=== PATIENT | female | born 1950 | race Caucasian/White ===

== ENCOUNTER 2021-04-06 13:30 | Outpatient (CLI) | payer MEDICAID, MEDICARE | END 2021-04-06 13:31 | disposition critical access hospital (66) | LOC: EMS 13:30 | DX: S99.912A Unspecified injury of left ankle, initial encounter (principal); S99.911A Unspecified injury of right ankle, initial encounter; S89.92XA Unspecified injury of left lower leg, initial encounter; S89.91XA Unspecified injury of right lower leg, initial encounter; W18.39XA Other fall on same level, initial encounter; Y93.01 Activity, walking, marching and hiking; Y92.007 Garden or yard of unspecified non-institutional (private) residence as the place of occurrence of the external cause | CPT/HCPCS: A0425; A0427 ==

== ENCOUNTER 2021-04-06 14:13 | Emergency (ER) | payer MEDICAID, MEDICARE ==
--- NOTE | 2021-04-06 14:43 | ED Physician Documentation ---
History of Present Illness - Stated complaint Stated Complaint: LEG INJURY - Chief complaint Chief Complaint: Trauma Ext - History obtained from History obtained from: Patient, EMS - History of Present Illness Timing: Today Pain level max: 7 Pain level now: 2 - Additonal information Additional information: 70-year-old female was walking today when she tripped, fell and landed on the bilateral knees. States she has pain in both her ankles and both her knees. No head injury. No neck or back pain. No loss of consciousness. No numbness or tingling. 200 mcg of fentanyl given IV by EMS prior to arrival. Worse with movement and better with rest. Review of Systems Constitutional: denies: Fever, Chills Nose: denies: Rhinorrhea / runny nose, Congestion GI: denies: Vomiting, Constipation, Diarrhea Skin: denies: Rash Musculoskeletal: denies: Neck pain, Back pain Neurologic: denies: Headache PD PAST MEDICAL HISTORY - Past Medical History Past Medical History: Yes Cardiovascular: None Respiratory: None Endocrine/Autoimmune: None GI: None : None HEENT: None Psych: None Musculoskeletal: Osteoarthritis Derm: None - Present Medications Home Medications: Ambulatory Orders Medication Instructions Recorded Confirmed Multivitamin [Multi-Vitamin Daily] 1 each PO DAILY 01/30/14 04/06/21 Oxycodone HCl/Acetaminophen 1 - 2 each PO Q6H PRN #20 tablet 04/06/21 [Percocet 5-325 mg Tablet] - Allergies Allergies/Adverse Reactions: Allergies Allergy/AdvReac Type Severity Reaction Status Date / Time No Known Drug Allergies Allergy Verified 04/06/21 14:25 PD ED PE NORMAL - Vitals Vital signs reviewed: Yes - General General: Alert and oriented X 3, No acute distress - HEENT HEENT: Moist mucous membranes - Neck Neck: Supple, no meningeal sign, No bony TTP - Cardiac Cardiac: RRR - Respiratory Respiratory: No respiratory distress, Clear bilaterally - Abdomen Abdomen: Soft, Non tender, Non distended - Back Back: No spinal TTP - Derm Derm: Warm and dry - Extremities Extremities: Other (mild swelling and TTP over the B knees and B ankles. No deformity. NVI. also TTP over the L foot, base of 5th MT. ) - Neuro Neuro: Alert and oriented X 3 Results - Vitals Vitals: Vital Signs - 24 hr 05/15/21 05/15/21 14:21 15:49 Temperature 36.7 C Heart Rate 85 87 Respiratory 18 18 Rate Blood Pressure 189/93 H 169/85 H O2 Saturation 96 100 Oxygen O2 Source Room air - Rads (name of study) L foot xray Radiology: Prelim report reviewed, EMP read contemporaneously, See rad report (Mildly displaced fracture of the base of the fifth metatarsal approximately 0.9 cm from the base. ) B knee xray Radiology: Prelim report reviewed, EMP read contemporaneously, See rad report B ankle xray Radiology: Prelim report reviewed, EMP read contemporaneously, See rad report PD MEDICAL DECISION MAKING - ED course Complexity details: reviewed results, re-evaluated patient, considered differential, d/w patient ED course: 70-year-old female status post trip and fall today. Has a fracture at the base of the fifth metatarsal on x-ray of the left foot. Initially was placed in a short leg posterior splint and attempted to use a walker as x-rays of the bilateral knees and right ankle were negative. She was unable to bear weight on the right leg and pointed to her upper leg as the source of pain. She also s tated that her ankle felt unstable, therefore we placed her in a gel splint and she was still unable to walk. At this point I decided to CT the right lower extremity which shows a 2 mm displaced lateral tibial plateau fracture that was not visible on x-ray. Discussed the case with orthopedics, Dr. Foley, he recommends a walking boot on the left foot and a knee immobilizer on the right lower extremity. Patient will be nonweightbearing on the right lower extremity and use the walker and walking boot to help her get around. She was able to ambulate in the emergency department with the walker in the walking boot. She will follow up with orthopedics for further care. Patient counseled regarding signs and symptoms for which I believe and urgent re-evaluation would be necessary. Patient with good understanding of and agreement to plan and is comfortable going home at this time This document was made in part using voice recognition software. While efforts are made to proofread this document, sound alike and grammatical errors may occur. B ankle xray IMPRESSION: Nondisplaced fracture of the base of the left fifth metatarsal. Consider dedicated foot radiographs if further evaluation is necessary. Mild to moderate degenerative changes of the foot and ankle. Calcaneal spurring at the precontrast on Achilles insertions. Soft tissue swelling of the ankles. B knee xray: IMPRESSION: Tricompartmental osteoarthritis which is worse within the patellofemoral compartments. No acute osseous abnormality. Chondrocalcinosis. Departure - Departure Disposition: 01 Home, Self Care Clinical Impression: Ankle sprain Qualifiers: Encounter type: initial encounter Involved ligament of ankle: unspecified ligament Laterality: unspecified laterality Qualified Code(s): S93.409A - Sprain of unspecified ligament of unspecified ankle, initial encounter Fracture of 5th metatarsal Qualifiers: Encounter type: initial encounter Fracture type: closed Fracture alignment: displaced Laterality: left Qualified Code(s): S92.352A - Displaced fracture of fifth metatarsal bone, left foot, initial encounter for closed fracture Tibial plateau fracture, right Qualifiers: Encounter type: initial encounter Fracture type: closed Qualified Code(s): S82.141A - Displaced bicondylar fracture of right tibia, initial encounter for closed fracture Condition: Good Instructions: ED Fx Foot, ED Fx Lower Ext, ED Sprain Ankle Follow-Up: Ariana Maynard ARNP [Primary Care Provider] - [facility] [Provider Group] - Within 1 week Prescriptions: Oxycodone HCl/Acetaminophen [Percocet 5-325 mg Tablet] 1 - 2 each PO Q6H PRN #20 tablet PRN Reason: pain Comments: Follow-up with orthopedic surgery for repeat evaluation of your knees once the swelling has decreased and for follow-up for the fracture. These fractures occasionally will need surgery, but they may heal with immobilization or a walking boot. Return if you worsen. You may bear weight on the left foot. Do not bear weight on the right leg. Use the walker and stay in the knee immobilizer. Do not drink alcohol or drive while on narcotic pain medicine. Note that many narcotic pain relievers also contain tylenol/acetaminophen. Please ensure that your total dose of acetaminophen from all sources does not exceed 3 grams (3000mg) per day. You may constipated on this medication, take a stool softener such as "Colace" twice a day while you are on it. Also recommend a dhsk-dyd-zfwutew laxative such as senna or MiraLAX any day that you do not have a bowel movement. If you received narcotic pain medication in the emergency department, do not drive or operate machinery for the next 24 hours. IMPRESSION: Mildly displaced fracture of the base of the fifth metatarsal approximately 0.9 cm from the base. IMPRESSION: Findings consistent with an acute lateral tibial plateau fracture. There is fracture line with 2 mm of depression. Subtle undulation of the anterior aspect of the lateral tibial plateau with adjacent chondral calcinosis may represent sequela of remote tibial plateau fracture. Tricompartment osteoarthritis worse within the patellofemoral compartment. There is lateral deviation of the patella for which correlation with patellar tracking abnormality is recommended. Small joint effusion. Discharge Date/Time: 04/06/21 19:38
--- NOTE | 2021-04-06 15:19 | XRAY Report ---
PROCEDURE: Knee 4 View BILAT INDICATIONS: fall, pain TECHNIQUE: 8 views of the left knee(s) were acquired. COMPARISON: None. FINDINGS: Bones: There is no acute fracture or dislocation. There is complete joint space loss of the lateral p atellofemoral compartments with osseous remodeling. There is tricompartment osteophytosis. There is a t least mild joint space loss of the medial compartments bilaterally. There is subtle lateral transla tion of the tibia of the left knee. There is chondrocalcinosis. Soft tissues: No joint effusion. Corticated calcification is noted within the anterior soft tissues of the left knee, likely heterotopic ossification from remote trauma. IMPRESSION: Tricompartmental osteoarthritis which is worse within the patellofemoral compartments. N o acute osseous abnormality. Chondrocalcinosis. Reviewed by: Robert Bermeo DO on 04/06/2021 2:18 PM SOFIA Approved by: Robert Bermeo DO on 04/06/2021 2:18 PM SOFIA Station ID: [id number]
--- NOTE | 2021-04-06 15:24 | XRAY Report ---
PROCEDURE: Ankle 3 View BILAT INDICATIONS: fall, pain TECHNIQUE: 3 views of both ankles were acquired. COMPARISON: None FINDINGS: Bones: There is a nondisplaced fracture at the base of the left fifth metatarsal. Postsurgical changes of th e left first metatarsal incompletely evaluated. No additional fractures are noted. Ankle mortises are intact. Well-corticated calcific densities noted adjacent to the medial and lateral malleoli bilater ally are likely sequela of remote trauma. Mild to moderate degenerative changes of the ankle and midf oot. Soft tissues: No significant joint effusion. Mild soft tissue swelling throughout the ankles. This is most prominent along the lateral malleolus, left greater than right. Bilateral Achilles insertional enthesophytes as well as small left greater than right plantar fascial insertion enthesophytes. IMPRESSION: Nondisplaced fracture of the base of the left fifth metatarsal. Consider dedicated foot radiographs i f further evaluation is necessary. Mild to moderate degenerative changes of the foot and ankle. Calcaneal spurring at the precontrast on Achilles insertions. Soft tissue swelling of the ankles. Reviewed by: Robert Bermeo DO on 04/06/2021 2:23 PM SOFIA Approved by: Robert Bermeo DO on 04/06/2021 2:23 PM SOFIA Station ID: [id number]
[2021-04-06] MEDS ORDERED: KETOROLAC 30 MG/ML VIAL IVP STA (15:28)
[2021-04-06 15:50] VITALS: BP 169/85
[2021-04-06] MEDS ORDERED: oxyCODONE 5 MG TABLET PO STA ×2 (16:01→18:52)
--- NOTE | 2021-04-06 16:01 | XRAY Report ---
PROCEDURE: Foot 3 View LT INDICATIONS: 5th MT fracture TECHNIQUE: 3 views of the foot were acquired. COMPARISON: Same day ankle radiographs FINDINGS: Bones: There is a minimally displaced fracture at the base of the fifth metatarsal approximately 0.9 cm from the base. No additional fractures. No dislocation. Postsurgical changes of the first metatars al and proximal phalanx likely representing sequela of prior hallux valgus correction surgery. There are degenerative changes throughout the foot most prominent at the calcaneocuboid articulation and th e first metatarsophalangeal joint. Soft tissues: No tibiotalar joint effusion. Plantar calcaneal and Achilles insertion enthesophytes. IMPRESSION: Mildly displaced fracture of the base of the fifth metatarsal approximately 0.9 cm from the base. Reviewed by: Robert Bermeo DO on 04/06/2021 3:00 PM SOFIA Approved by: Robert Bermeo DO on 04/06/2021 3:00 PM SOFIA Station ID: [id number]
--- NOTE | 2021-04-06 18:01 | CT Report ---
PROCEDURE: LOWER EXTREMITY WO - RT INDICATIONS: R knee/tib/fib unable to walk TECHNIQUE: Noncontrast 3 mm axial sections acquired of the knee, with coronal and sagittal reformats. COMPARISON: None. FINDINGS: Image quality: Excellent. Bones: There is a linear fracture along the lateral margins of the lateral tibial plateau. This is a ssociated with minimal depression of approximately 2 mm. There is subtle undulation of the anterior a spect of the lateral tibial plateau with adjacent chondrocalcinosis, which may represent sequela of r emote tibial plateau fracture. There is tricompartmental osteophytosis. There is subchondral sclerosi s and subchondral cystic changes. There is lateral deviation of the patella. The cystic changes are w orse within the lateral articulating surface of the patellofemoral compartment. Soft tissues: There is a small joint effusion with intra-articular calcifications. IMPRESSION: Findings consistent with an acute lateral tibial plateau fracture. There is fracture line with 2 mm o f depression. Subtle undulation of the anterior aspect of the lateral tibial plateau with adjacent chondral calcino sis may represent sequela of remote tibial plateau fracture. Tricompartment osteoarthritis worse within the patellofemoral compartment. There is lateral deviation of the patella for which correlation with patellar tracking abnormality is recommended. Small joint effusion. Reviewed by: Robert Bermeo DO on 04/06/2021 4:59 PM SOFIA Approved by: Robert Bermeo DO on 04/06/2021 4:59 PM SOFIA Station ID: [id number]
[2021-04-06] MEDS ORDERED: oxyCODONE/ACET 5/325 Prepack 4 PO STA (18:52)
== END 2021-04-06 19:38 | disposition home or self-care (01) ==
LOC: EDUNIT# → ED 14:13 → SUPCPDRO 14:13 → ED 19:38
DX: S92.352A Displaced fracture of fifth metatarsal bone, left foot, initial encounter for closed fracture (principal); S82.141A Displaced bicondylar fracture of right tibia, initial encounter for closed fracture; S93.409A Sprain of unspecified ligament of unspecified ankle, initial encounter; W01.0XXA Fall on same level from slipping, tripping and stumbling without subsequent striking against object, initial encounter; Y93.01 Activity, walking, marching and hiking; Y92.007 Garden or yard of unspecified non-institutional (private) residence as the place of occurrence of the external cause; M17.0 Bilateral primary osteoarthritis of knee
CPT/HCPCS: 29515; 73564; 73610; 73630; 73700; 96374; 99284; A9270

== ENCOUNTER 2021-05-21 08:00 | Outpatient (CLI) | payer MEDICARE, MEDICAID ==
--- NOTE | 2021-05-21 17:23 | XRAY Report ---
PROCEDURE: Knee 4 View BILAT INDICATIONS: BILATERAL PRIMARY OSTEOARTHRITIS OF KNEES TECHNIQUE: 3 views of the knee(s) were acquired. COMPARISON: None. FINDINGS: Bones: No fractures or dislocations. No suspicious bony lesions. There is moderate to severe bilateral medial compartment narrowing with periarticular osteophytes. Th ere is mild to moderate right lateral compartment narrowing. Chondrocalcinosis is present bilaterally . Prominent left lateral patellar subluxation is present. There is bilateral mild to moderate patello femoral compartment narrowing. No gross erosions. Soft tissues: No joint effusion. No suspicious soft tissue calcifications. IMPRESSION: Stable appearance of tricompartmental right and bicompartmental arthritic changes as abo ve. Reviewed by: Jeanie Alford MD on 05/21/2021 5:21 PM PDT Approved by: Jeanie Alford MD on 05/21/2021 5:21 PM PDT Station ID: [id number]
--- NOTE | 2021-05-21 17:30 | XRAY Report ---
PROCEDURE: Ankle 3 View BILAT INDICATIONS: SPRAIN OF CALCANEOFIBULAR LIGAMENT OF L ANKLE TECHNIQUE: 3 views of the ankle were acquired. COMPARISON: Left foot x-ray 921, 05/13/2014, 04/06/2021, bilateral ankle 04/06/2021 FINDINGS: Bones: There is a healing fracture at the base of the fifth left metatarsal. Ankle mortise is normall y aligned. No suspicious bony lesions. Arthritic change at the tibiotalar joint space is present bilaterally. Bilateral calcaneal spurs are present. There are corticated calcifications adjacent to the medial and lateral malleolus on the left most consistent with degenerative change versus old trauma. Bilateral Achilles insertional enthesoph ytes are present. Postsurgical screw is noted overlying the first metatarsal. Soft tissues: No tibiotalar joint effusion. Achilles tendon appears normal. IMPRESSION: 1. Degenerative changes bilaterally, relatively stable. 2. Healing although incomplete fifth metatarsal base fracture. Reviewed by: Jeanie Alford MD on 05/21/2021 5:29 PM PDT Approved by: Jeanie Alford MD on 05/21/2021 5:29 PM PDT Station ID: [id number]
--- NOTE | 2021-05-21 17:31 | XRAY Report ---
PROCEDURE: Foot 3 View LT INDICATIONS: NONDISPLACED FX OF L 5TH METACARPAL TECHNIQUE: 3 views of the foot were acquired. COMPARISON: X-ray ankle bilateral 02/04/2021, left foot 02/04/2021 FINDINGS: Bones: There is a healing fifth metatarsal base fracture. Fracture lucency remains visible. Cerclage wires noted overlying the proximal first phalanx. Or 3 screws noted traversing the first mid and prox imal metatarsal. There is good anatomic alignment.. No suspicious bony lesions. Soft tissues: No tibiotalar joint effusion. Achilles tendon appears normal. IMPRESSION: 1. Healing fracture of fifth metatarsal base. 2. First metatarsal postsurgical change. Reviewed by: Jeanie Alford MD on 05/21/2021 5:30 PM PDT Approved by: Jeanie Alford MD on 05/21/2021 5:30 PM PDT Station ID: [id number]
== END 2021-05-21 23:59 | disposition home or self-care (01) ==
LOC: DI.N 08:00
PROVIDERS: ATTEND Orthopaedic Surgery
DX: M17.0 Bilateral primary osteoarthritis of knee (principal); M19.072 Primary osteoarthritis, left ankle and foot; M19.071 Primary osteoarthritis, right ankle and foot; S92.352D Displaced fracture of fifth metatarsal bone, left foot, subsequent encounter for fracture with routine healing

== ENCOUNTER 2021-07-04 08:27 | Outpatient (CLI) | payer MEDICARE, MEDICAID ==
[2021-07-04 16:26] LABS: BASOPHILS % (AUTO) 0.9 %; EOSINOPHILS # (AUTO) 0.1 10^3/uL (0.0-0.7); EOSINOPHILS % (AUTO) 2.5 %; HCT - HEMATOCRIT 41.7 % (37.0-47.0); HGB - HEMOGLOBIN 12.8 g/dL (12.0-16.0); LYMPHOCYTES # (AUTO) 1.3 10^3/uL (1.5-3.5); MEAN CORPUSCULAR HEMOGLOBIN 30.5 pg (27.0-31.0); MEAN CORPUSCULAR HGB CONC 30.7 g/dL (32.0-36.0); MEAN CORPUSCULAR VOLUME 99.3 fL (81.0-99.0); MEAN PLATELET VOLUME 9.8 fL (7.9-10.8); MONOCYTES # (AUTO) 0.5 10^3/uL (0.0-1.0); MONOCYTES % (AUTO) 11.7 %; NEUTROPHILS # (AUTO) 2.4 10^3/uL (1.5-6.6); NEUTROPHILS % (AUTO) 54.7 %; PLT - PLATELET COUNT 328 10^3/uL (130-450); RED CELL DISTRIBUTION WIDTH 12.9 % (12.0-15.0); WHITE BLOOD COUNT 4.4 x10^3/uL (4.8-10.8)
[2021-07-04 16:52] LABS: ALBUMIN/GLOBULIN RATIO 1.4 (1.0-2.2); ALKALINE PHOSPHATASE 85 IU/L (42-121); ALT ALANINE AMINOTRANSFERASE 23 IU/L (10-60); AST ASPARTATE AMINOTRANSFERASE 21 IU/L (10-42); BUN - BLOOD UREA NITROGEN 10 mg/dL (6-20); CARBON DIOXIDE - CO2 25 mmol/L (21-32); CHLORIDE 105 mmol/L (101-111); CHOL/HDL RATIO 3.3 (<4.4); CHOLESTEROL 253 mg/dL; CREATININE 0.5 mg/dL (0.4-1.0); GFR - MDRD 122 (>89); GLUCOSE 103 mg/dL (70-100); HDL CHOLESTEROL 77 mg/dL; LDL CHOLESTEROL,CALCULATED 154 mg/dL; POTASSIUM 3.8 mmol/L (3.5-5.0); SODIUM 138 mmol/L (135-145); TOTAL PROTEIN 6.8 g/dL (6.7-8.2); TRIGLYCERIDES 108 mg/dL; VLDL CHOLESTEROL 22 mg/dL
== END 2021-07-04 08:28 | disposition home or self-care (01) ==
LOC: LAB.S 08:27
PROVIDERS: ATTEND Internal Medicine
DX: Z00.00 Encounter for general adult medical examination without abnormal findings (principal); R03.0 Elevated blood-pressure reading, without diagnosis of hypertension
CPT/HCPCS: 36415; 80053; 80061; 83721; 85025

== ENCOUNTER 2022-03-12 15:13 | Emergency (ER) | payer MEDICARE, MEDICAID ==
[2022-03-12] MEDS ORDERED: SODIUM CHLORIDE 0.9% 1,000 ML IV STA (15:47)
[2022-03-12] MEDS ORDERED: ONDANSETRON 4 MG/2 ML VIAL IVP STA (15:47)
[2022-03-12] MEDS ORDERED: HYDROmorphone 1 MG/ML CARPUJECT IVP STA ×2 (15:47→17:06)
--- NOTE | 2022-03-12 15:47 | ED Physician Documentation ---
History of Present Illness - Stated complaint Stated Complaint: NAUSEA,RT SIDE PX,SHAKING - Chief complaint Chief Complaint: Abd Pain - Additonal information Additional information: 71-year-old female presents emergency department for evaluation of acute right flank pain right lower quadrant abdominal pain. 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 However she had been unable to get the pain to go away despite lack of movement or rest. She has a remote history of a hernia repair on the right side about 6 years ago. She endorses some nausea but no vomiting. No rosalino hematuria though over the last week she has intermittently had darker than normal urine. No dysuria frequency or urgency. Review of Systems Constitutional: denies: Fever, Chills Nose: reports: Reviewed and negative Throat: reports: Reviewed and negative Respiratory: reports: Reviewed and negative GI: reports: Abdominal Pain, Nausea : denies: Dysuria (Dark urine), Frequency, Hesitancy, Unable to Void, Incontinent Skin: reports: Reviewed and negative Musculoskeletal: reports: Reviewed and negative Neurologic: reports: Reviewed and negative Psychiatric: reports: Reviewed and negative PD PAST MEDICAL HISTORY - Past Medical History Cardiovascular: None Respiratory: None Endocrine/Autoimmune: None GI: None : None HEENT: None Psych: None Musculoskeletal: Osteoarthritis Derm: None - Present Medications Home Medications: Ambulatory Orders Medication Instructions Recorded Confirmed Multivitamin [Multi-Vitamin Daily] 1 each PO DAILY 01/30/14 03/12/22 HYDROcod/ACETAM 5/325 [Thurmond 5/325] 1 tablet PO BID PRN #10 tablet 03/12/22 Losartan Potassium 25 mg PO DAILY 03/12/22 03/12/22 Tamsulosin HCl [Flomax] 0.4 mg PO DAILY #14 cap 03/12/22 - Allergies Allergies/Adverse Reactions: Allergies Allergy/AdvReac Type Severity Reaction Status Date / Time No Known Drug Allergies Allergy Verified 03/12/22 15:20 - Social History Does the pt smoke?: No Smoking Status: Never smoker PD ED PE NORMAL - General General: Alert and oriented X 3, No acute distress, Well developed/nourished - HEENT HEENT: Atraumatic - Neck Neck: Supple, no meningeal sign, No adenopathy - Cardiac Cardiac: RRR, No murmur - Respiratory Respiratory: No respiratory distress, Clear bilaterally - Abdomen Abdomen: Normal bowel sounds, Soft. No: Non tender (Mild tenderness to the right flank without guarding or rebound. No CVA tenderness. Abdominal exam however is limited by body habitus) - Back Back: No CVA TTP - Derm Derm: Normal color, Warm and dry, No rash - Extremities Extremities: No deformity - Neuro Neuro: Alert and oriented X 3 Eye Opening: Spontaneous Motor: Obeys Commands Verbal: Oriented GCS Score: 15 - Psych Psych: Normal mood Results - Vitals Vitals: Vital Signs - 24 hr 03/12/22 03/12/22 03/12/22 15:16 15:39 15:56 Temperature 36.6 C Heart Rate 95 100 96 Respiratory 16 22 18 Rate Blood Pressure 212/97 H 159/119 H 158/117 H O2 Saturation 98 99 100 03/12/22 03/12/22 16:59 17:15 Temperature Heart Rate 90 97 Respiratory 20 20 Rate Blood Pressure 192/89 H 179/107 H O2 Saturation 99 96 Oxygen O2 Source Room air - Labs Labs: Laboratory Tests 03/12/22 03/12/22 03/12/22 15:27 15:30 15:30 WBC 8.0 RBC 4.45 Hgb 14.1 Hct 41.9 MCV 94.2 MCH 31.7 H MCHC 33.7 RDW 12.4 Plt Count 272 MPV 9.6 Neut # (Auto) 6.0 Lymph # (Auto) 1.2 L [place] # (Auto) 0.7 Eos # (Auto) 0.1 Baso # (Auto) 0.1 Absolute Nucleated RBC 0.00 Nucleated RBC % 0.0 Sodium 139 Potassium 3.8 Chloride 103 Carbon Dioxide 24 Anion Gap 12.0 BUN 15 Creatinine 0.7 Estimated GFR (MDRD) 83 L Glucose 123 H Lactic Acid Calcium 10.7 H Total Bilirubin 0.8 AST 26 ALT 33 Alkaline Phosphatase 100 Total Protein 7.5 Albumin 4.2 Globulin 3.3 Albumin/Globulin Ratio 1.3 Lipase 22 Urine Color YELLOW Urine Clarity CLOUDY Urine pH 5.5 Ur Specific [place] >=1.030 H Urine Protein 30 H Urine Glucose (UA) NEGATIVE Urine Ketones 40 H Urine Occult Blood LARGE H Urine Nitrite NEGATIVE Urine Bilirubin NEGATIVE Urine Urobilinogen 0.2 (NORMAL) Ur Leukocyte Esterase TRACE H Urine RBC TNTC H Urine WBC 4-5 Ur Squamous Epith Cells RARE Squamous Urine Crystals >50 Calcium Oxalate Urine Bacteria Few Urine Yeast PRESENT Ur Microscopic Review INDICATED Urine Culture Comments INDICATED 03/12/22 15:30 WBC RBC Hgb Hct MCV MCH MCHC RDW Plt Count MPV Neut # (Auto) Lymph # (Auto) [place] # (Auto) Eos # (Auto) Baso # (Auto) Absolute Nucleated RBC Nucleated RBC % Sodium Potassium Chloride Carbon Dioxide Anion Gap BUN Creatinine Estimated GFR (MDRD) Glucose Lactic Acid 1.8 Calcium Total Bilirubin AST ALT Alkaline Phosphatase Total Protein Albumin Globulin Albumin/Globulin Ratio Lipase Urine Color Urine Clarity Urine pH Ur Specific [place] Urine Protein Urine Glucose (UA) Urine Ketones Urine Occult Blood Urine Nitrite Urine Bilirubin Urine Urobilinogen Ur Leukocyte Esterase Urine RBC Urine WBC Ur Squamous Epith Cells Urine Crystals Urine Bacteria Urine Yeast Ur Microscopic Review Urine Culture Comments - Rads (name of study) Ct abd Radiology: Final report received (4 mm proximal right ureter calcification causing mild right hydronephrosis. Small hiatal hernia. Colonic diverticulosis without acute-itis) PD MEDICAL DECISION MAKING - ED course Complexity details: reviewed results, considered differential, d/w patient ED course: 71-year-old female presents emergency department for evaluation of acute right flank pain. Began just a few hours prior to arrival when she was at work. She does have some nausea but no vomiting. No fevers. No reports of dysuria urgency or frequency though she did report that her urine was darker colored earlier in the week. Her screening labs do not show any acute worrisome abnormalities. She has normal renal function. Her urine has a small amount of leukocyte esterase and rare bacteria. However given lack of symptoms no findings to suggest acute infection or cystitis. CT scan was obtained and it does show a right proximal ureter stone with some associated mild hydroureter and hydronephrosis. This finding was discussed with the patient and her sister at the bedside. She is advised close follow-up with urology and will contact her primary care office tomorrow to obtain that referral. She is given the name of [facility] urology for follow-up. A prescription for a limited amount of hydrocodone was sent to the pharmacy but she is encouraged NSAID use as well as the Flomax. Emergent return precautions were discussed for fevers, worsening symptoms uncontrolled vomiting I am prescribing a short course of short-acting opioid pain medication for this patient. I have reviewed the patients [employer] and no concerning findings were noted. I have discussed that the opioids are for short term therapy only, and will not be refilled from the ED. Departure - Departure Disposition: 01 Home, Self Care Clinical Impression: Ureteral stone with hydronephrosis Condition: Stable Record reviewed to determine appropriate education?: Yes Instructions: ED Stone Renal W Colic Follow-Up: Nette Perez MD [Provider Admit Priv/Credential] - Prescriptions: Tamsulosin HCl [Flomax] 0.4 mg PO DAILY #14 cap HYDROcod/ACETAM 5/325 [Thurmond 5/325] 1 tablet PO BID PRN #10 tablet PRN Reason: Pain Comments: Dejuan gordon are seen today in the emergency department for sudden pain on the right side of your abdomen and back. Your labs show that you have some blood in your urine and the CT scan shows that you do have a small right proximal ureter stone that is causing some mild swelling in the kidney. In order to help manage this I am prescribing a medication called Flomax. This should help dilate your ureter and allow you to pass a stone more easily. For pain I do recommend ibuprofen 600 mg with food 2-3 times a day. For severe pain I am prescribing a limited amount of hydrocodone. Do not drive if taking this it makes you unsafe. Please discuss this ED visit with your primary care office. You would benefit from referral to urology for longer-term evaluation and follow-up. If at any point you develop fevers, have worsening pain, uncontrolled vomiting or any fainting spells then please return to the ER for a second evaluation
[2022-03-12 15:50] LABS: HCT - HEMATOCRIT 41.9 % (37.0-47.0); HGB - HEMOGLOBIN 14.1 g/dL (12.0-16.0); MEAN CORPUSCULAR HEMOGLOBIN 31.7 pg (27.0-31.0); MEAN CORPUSCULAR VOLUME 94.2 fL (81.0-99.0); RED BLOOD COUNT 4.45 10^6/uL (4.20-5.40)
[2022-03-12 15:51] LABS: LYMPHOCYTES % (AUTO) 14.5 %; MEAN CORPUSCULAR HGB CONC 33.7 g/dL (32.0-36.0); MEAN PLATELET VOLUME 9.6 fL (7.9-10.8); MONOCYTES % (AUTO) 8.9 %; NEUTROPHILS % (AUTO) 74.9 %; PLT - PLATELET COUNT 272 10^3/uL (130-450); RED CELL DISTRIBUTION WIDTH 12.4 % (12.0-15.0)
[2022-03-12 15:52] LABS: CLARITY,URINE CLOUDY (CLEAR); LEUKOCYTE ESTERASE, URINE TRACE (NEGATIVE); NITRITE,URINE NEGATIVE (NEGATIVE); OCCULT BLOOD,URINE LARGE (NEGATIVE); PH,URINE 5.5 PH (5.0-7.5); PROTEIN,URINE 30 mg/dL (NEGATIVE); UROBILINOGEN,URINE 0.2 (NORMAL) E.U./dL (NORMAL)
[2022-03-12 15:52] LABS: BASOPHILS # (AUTO) 0.1 10^3/uL (0.0-0.1); BASOPHILS % (AUTO) 0.6 %; EOSINOPHILS # (AUTO) 0.1 10^3/uL (0.0-0.7); EOSINOPHILS % (AUTO) 0.9 %; LYMPHOCYTES # (AUTO) 1.2 10^3/uL (1.5-3.5); MONOCYTES # (AUTO) 0.7 10^3/uL (0.0-1.0)
[2022-03-12 15:53] LABS: BILIRUBIN,URINE NEGATIVE (NEGATIVE); GLUCOSE, URINE (UA) NEGATIVE (NEGATIVE); KETONES,URINE (UA) 40 mg/dL (NEGATIVE)
[2022-03-12] MEDS ORDERED: IOVERSOL 320 100 ML VIAL IVP ONE ×2 (15:55→19:16)
[2022-03-12 15:59] LABS: BACTERIA,URINE Few /HPF (None Seen); CRYSTALS,URINE >50 Calcium Oxalate /LPF; RBC,URINE TNTC /HPF (0-5); SQUAMOUS EPITHELIAL CELL,UR RARE Squamous (<= Few)
[2022-03-12 16:00] LABS: YEAST,URINE PRESENT
[2022-03-12 16:09] LABS: BILIRUBIN,TOTAL 0.8 mg/dL (0.2-1.0); CALCIUM 10.7 mg/dL (8.5-10.3); CREATININE 0.7 mg/dL (0.4-1.0); POTASSIUM 3.8 mmol/L (3.5-5.0)
[2022-03-12 16:10] LABS: ALBUMIN 4.2 g/dL (3.2-5.5); ALBUMIN/GLOBULIN RATIO 1.3 (1.0-2.2); TOTAL PROTEIN 7.5 g/dL (6.7-8.2)
[2022-03-12] MEDS ORDERED: KETOROLAC 30 MG/ML VIAL IVP STA (17:22)
--- NOTE | 2022-03-12 17:42 | CT Report ---
PROCEDURE: Abdomen/Pelvis W INDICATIONS: right flank pain CONTRAST: IV CONTRAST: Optiray 320 ml: 100 PO CONTRAST: *NO PO CONTRAST TECHNIQUE: After the administration of IV contrast, 5 mm thick sections acquired from the diaphragms to the symp hysis. 5 mm thick coronal and sagittal reformats were acquired. For radiation dose reduction, the f ollowing was used: automated exposure control, adjustment of mA and/or kV according to patient size. COMPARISON: None. FINDINGS: Image quality: Excellent. ABDOMEN: Lung bases: Lung bases are clear. Heart size is normal. Small hiatal hernia. Solid organs: Mildly elongated liver. Normal gallbladder. Nondilated biliary tree. Normal size pancr eas with near complete fatty replacement. Normal size spleen. No adrenal nodules. Symmetric renal enhancement. Mild to moderate right renal hydronephrosis. Proximal ureteral calcifica tion measuring about 4 mm present at the L4 level. Peritoneum and bowel: Bowel loops demonstrate normal wall thickness and caliber. Descending and sig moid colon diverticulosis. No free fluid or air. Nodes and vessels: No retroperitoneal or mesenteric adenopathy by size criteria. Aorta and inferior vena cava are normal in size. Miscellaneous: No ventral hernias. PELVIS: Genitourinary: Bladder wall thickness is normal. No bladder calculi. Uterus and left ovarian tissue appear normal. The right ovary was not seen. Miscellaneous: No inguinal hernias or adenopathy. Bones: No suspicious bony lesions. No vertebral body compression fractures. IMPRESSION: 1. 4 mm proximal right ureteral calcification causing mild right hydronephrosis. 2. Fatty replacement of the pancreas. Correlate with pancreatic insufficiency. 3. Small hiatal hernia. 4. Colonic diverticulosis without acute diverticulitis. Reviewed by: May Garay MD on 03/12/2022 5:41 PM PDT Approved by: May Garay MD on 03/12/2022 5:41 PM PDT Station ID: [id number]
[2022-03-12 17:58] VITALS: BP 169/74
== END 2022-03-12 17:58 | disposition home or self-care (01) ==
LOC: ED 15:13
DX: N13.2 Hydronephrosis with renal and ureteral calculous obstruction (principal); R31.9 Hematuria, unspecified
CPT/HCPCS: 36415; 74177; 80053; 81001; 83605; 83690; 85025; 87086; 96374; 96375; 96376; 99282; 99284; J1170; Q9967; 81003

== ENCOUNTER 2022-09-03 08:10 | Outpatient (CLI) | payer MEDICARE, MEDICAID ==
[2022-09-03 14:42] LABS: BASOPHILS % (AUTO) 0.9 %; EOSINOPHILS # (AUTO) 0.2 10^3/uL (0.0-0.7); EOSINOPHILS % (AUTO) 3.5 %; HCT - HEMATOCRIT 40.2 % (37.0-47.0); HGB - HEMOGLOBIN 13.2 g/dL (12.0-16.0); LYMPHOCYTES # (AUTO) 1.5 10^3/uL (1.5-3.5); LYMPHOCYTES % (AUTO) 32.3 %; MEAN CORPUSCULAR HGB CONC 32.8 g/dL (32.0-36.0); MEAN CORPUSCULAR VOLUME 97.6 fL (81.0-99.0); MEAN PLATELET VOLUME 10.3 fL (7.9-10.8); MONOCYTES # (AUTO) 0.6 10^3/uL (0.0-1.0); MONOCYTES % (AUTO) 12.4 %; NEUTROPHILS # (AUTO) 2.3 10^3/uL (1.5-6.6); NEUTROPHILS % (AUTO) 50.7 %; PLT - PLATELET COUNT 250 10^3/uL (130-450); RED BLOOD COUNT 4.12 10^6/uL (4.20-5.40); RED CELL DISTRIBUTION WIDTH 12.6 % (12.0-15.0); WHITE BLOOD COUNT 4.5 x10^3/uL (4.8-10.8)
[2022-09-03 15:26] LABS: ALBUMIN 3.9 g/dL (3.2-5.5); ALBUMIN/GLOBULIN RATIO 1.4 (1.0-2.2); BILIRUBIN,TOTAL 0.8 mg/dL (0.2-1.0); CALCIUM 10.1 mg/dL (8.5-10.3); CREATININE 0.5 mg/dL (0.4-1.0); POTASSIUM 4.2 mmol/L (3.5-5.0); TOTAL PROTEIN 6.6 g/dL (6.7-8.2)
== END 2022-09-03 08:11 | disposition home or self-care (01) ==
LOC: LAB.S 08:10
PROVIDERS: ATTEND Physician Assistant
DX: I10 Essential (primary) hypertension (principal); R42 Dizziness and giddiness
CPT/HCPCS: 36415; 80053; 85025

== ENCOUNTER 2023-01-19 08:46 | Outpatient (CLI) | payer MEDICARE, MEDICAID ==
--- NOTE | 2023-01-20 10:52 | Mammography Report ---
BILATERAL DIGITAL SCREENING MAMMOGRAM 3D/2D WITH EXAGGERATED CC: 01/19/2023 CLINICAL: Routine screening. Family history of breast cancer. Comparison is made to exams dated: 11/18/2012 mammogram and 08/20/2010 mammogram - [facility]. There are scattered areas of fibroglandular density in both breasts (category b / 25%-50% glandular t issue). There are benign masses in both breasts. No significant masses, calcifications, or other findings are seen in either breast. There has been no significant interval change. IMPRESSION: BENIGN There is no mammographic evidence of malignancy. A 1 year screening mammogram is recommended. Based on the Tyrer Cuzick model (a risk assessment model) the patients lifetime risk is 5.2% and her 10 year risk is 3.3%. According to the ACR, ACS, and NCCN guidelines, an annual breast MRI exam karen g with mammogram is recommended if the patients lifetime risk is 20% or greater. This exam was interpreted at Station ID: [id number]. NOTE: For mammograms, a report in lay terms will be sent to the patient. Approximately 15% of breast malignancies will not be visualized mammographically. In the management of a palpable breast mass, a negative mammogram must not discourage biopsy of a clinically suspicious lesion. Electronically Signed By: Rodrigo xavier/ella:01/19/2023 09:57:14 letter sent: No_Letter ACR BI-RADS Category 2: Benign Finding(s) 3342F PARENCHYMAL PATTERN: (A) - The breast(s) demonstrate(s) scattered fibroglandular densities. BI-RADS CATEGORY: (2) - 2 RECOMMENDATION: (ANNUAL) - Recommend routine annual screening mammography. [id number] 1 year screening LATERALITY: (B)
== END 2023-01-19 08:47 | disposition home or self-care (01) ==
LOC: DI.S 08:46
PROVIDERS: ATTEND Registered Nurse
DX: Z12.31 Encounter for screening mammogram for malignant neoplasm of breast (principal); Z80.3 Family history of malignant neoplasm of breast

== ENCOUNTER 2024-02-05 13:00 | Outpatient (CLI) | payer MEDICARE ==
[2024-02-05 20:00] LABS: BASOPHILS # (AUTO) 0.1 10^3/uL (0.0-0.1); BASOPHILS % (AUTO) 0.8 %; EOSINOPHILS # (AUTO) 0.1 10^3/uL (0.0-0.7); EOSINOPHILS % (AUTO) 1.2 %; HCT - HEMATOCRIT 41.1 % (37.0-47.0); HGB - HEMOGLOBIN 13.2 g/dL (12.0-16.0); LYMPHOCYTES # (AUTO) 1.7 10^3/uL (1.5-3.5); LYMPHOCYTES % (AUTO) 22.7 %; MEAN CORPUSCULAR HEMOGLOBIN 31.6 pg (27.0-31.0); MEAN CORPUSCULAR HGB CONC 32.1 g/dL (32.0-36.0); MEAN CORPUSCULAR VOLUME 98.3 fL (81.0-99.0); MEAN PLATELET VOLUME 10.2 fL (7.9-10.8); MONOCYTES # (AUTO) 0.8 10^3/uL (0.0-1.0); MONOCYTES % (AUTO) 10.3 %; NEUTROPHILS # (AUTO) 4.9 10^3/uL (1.5-6.6); NEUTROPHILS % (AUTO) 64.9 %; PLT - PLATELET COUNT 279 10^3/uL (130-450); RED BLOOD COUNT 4.18 10^6/uL (4.20-5.40); RED CELL DISTRIBUTION WIDTH 12.8 % (12.0-15.0); WHITE BLOOD COUNT 7.5 x10^3/uL (4.8-10.8)
[2024-02-05 20:22] LABS: ALBUMIN 4.1 g/dL (3.2-5.5); ALBUMIN/GLOBULIN RATIO 1.6 (1.0-2.2); ALKALINE PHOSPHATASE 99 IU/L (42-121); ALT ALANINE AMINOTRANSFERASE 25 IU/L (10-60); AST ASPARTATE AMINOTRANSFERASE 19 IU/L (10-42); BILIRUBIN,TOTAL 0.8 mg/dL (0.2-1.0); BUN - BLOOD UREA NITROGEN 11 mg/dL (6-20); CALCIUM 10.5 mg/dL (8.5-10.3); CARBON DIOXIDE - CO2 28 mmol/L (21-32); CHLORIDE 109 mmol/L (101-111); CHOL/HDL RATIO 3.3 (<4.4); CHOLESTEROL 252 mg/dL; CREATININE 0.5 mg/dL (0.6-1.3); GFR - MDRD 122 (>89); GLUCOSE 95 mg/dL (74-104); HDL CHOLESTEROL 77 mg/dL; LDL CHOLESTEROL,CALCULATED 161 mg/dL; LDL/HDL RATIO 2.1 (<4.4); POTASSIUM 4.4 mmol/L (3.5-4.5); SODIUM 141 mmol/L (135-145); TOTAL PROTEIN 6.6 g/dL (6.4-8.9); TRIGLYCERIDES 71 mg/dL (48-352); VLDL CHOLESTEROL 14 mg/dL
[2024-02-05 20:34] LABS: THYROID STIMULATING HORMONE 3.86 uIU/mL (0.34-5.60)
== END 2024-02-05 13:01 | disposition home or self-care (01) ==
LOC: LAB.S 13:00
PROVIDERS: ATTEND Registered Nurse
DX: Z79.899 Other long term (current) drug therapy (principal); Z13.220 Encounter for screening for lipoid disorders; Z13.29 Encounter for screening for other suspected endocrine disorder
CPT/HCPCS: 36415; 80053; 80061; 83721; 84443; 85025

== ENCOUNTER 2024-02-11 07:03 | Outpatient (CLI) | payer MEDICARE ==
[2024-02-11 16:12] LABS: CHOL/HDL RATIO 3.8 (<4.4); CHOLESTEROL 236 mg/dL; HDL CHOLESTEROL 62 mg/dL; LDL CHOLESTEROL,CALCULATED 154 mg/dL; LDL/HDL RATIO 2.5 (<4.4); TRIGLYCERIDES 99 mg/dL (48-352); VLDL CHOLESTEROL 20 mg/dL
[2024-02-12 08:11] LABS: VITAMIN D 25-HYDROXY 16.3 ng/mL (30.0-100.0)
[2024-02-12 18:08] LABS: CALCIUM IONIZED SERUM 5.6 mg/dL (4.5-5.6)
== END 2024-02-11 07:04 | disposition home or self-care (01) ==
LOC: LAB.S 07:03
PROVIDERS: ATTEND Registered Nurse
DX: E83.52 Hypercalcemia (principal); Z13.220 Encounter for screening for lipoid disorders; R79.89 Other specified abnormal findings of blood chemistry
CPT/HCPCS: 36415; 80061; 82306; 82330; 83721; 83970

== ENCOUNTER 2024-03-04 08:29 | Outpatient (CLI) | payer MEDICARE ==
--- NOTE | 2024-03-04 13:31 | Ultrasound Report ---
PROCEDURE: Abdomen Limited INDICATIONS: LUQ ABDOMINAL PAIN. Concern for Hiatal Hernia TECHNIQUE: Real-time focused scanning was performed of the abdomen, with image documentation. COMPARISONS: CT abdomen and pelvis dated 03/12/2022. FINDINGS: Liver: Not examined Gallbladder: Not examined Biliary ducts: Not examined Pancreas: Not examined Left kidney: Normal in size and echotexture. Left kidney measures 11.2 cm long. No hydronephrosis or nephrolithiasis. No solid masses. No complex renal cystic lesions which require follow-up. Aorta: Visualized aorta is normal in caliber at less than 3 cm. IVC: Intrahepatic inferior vena cava is patent. Miscellaneous: No free abdominal fluid. No sonographic evidence for hiatal hernia is identified. IMPRESSION: Small hiatal hernia seen on comparison CT of the abdomen and pelvis is not visualized sonographically . Otherwise, no acute sonographic abnormalities identified in the left upper quadrant. Reviewed by: Alonzo Jane MD on 03/04/2024 1:30 PM PDT Approved by: Alonzo Jane MD on 03/04/2024 1:30 PM PDT Station ID: [id number]
== END 2024-03-04 08:30 | disposition home or self-care (01) ==
LOC: DI 08:29
PROVIDERS: ATTEND Registered Nurse
DX: R10.12 Left upper quadrant pain (principal)

== ENCOUNTER 2024-04-08 12:11 | Outpatient (CLI) | payer MEDICARE ==
--- NOTE | 2024-04-08 15:52 | XRAY Report ---
PROCEDURE: Finger(s) BL INDICATIONS: ARTHRITIS OF BITLAT FINGER JOINTS TECHNIQUE: AP hand, 2 views of the bilateral finger(s) acquired. COMPARISON: None. FINDINGS: Bones: No fractures or dislocations. No suspicious bony lesions. Bilateral overall mild to moderat e degenerative changes within the IP and first CMC joints. No distinct erosions. Very minimal appeara nce of scattered periarticular osteophytes. Most prominent changes in the left first CMC joint. Soft tissues: No suspicious soft tissue calcifications or masses. IMPRESSION: Scattered mild to moderate arthritic changes most severe in the left first CMC joint. Reviewed by: Jeanie Alford MD on 04/08/2024 3:51 PM PDT Approved by: Jeanie Alford MD on 04/08/2024 3:51 PM PDT Station ID: [id number]
== END 2024-04-08 12:12 | disposition home or self-care (01) ==
LOC: DI.S 12:11
PROVIDERS: ATTEND Physician Assistant Surgical
DX: M18.0 Bilateral primary osteoarthritis of first carpometacarpal joints (principal); M19.041 Primary osteoarthritis, right hand; M19.042 Primary osteoarthritis, left hand

== ENCOUNTER 2024-04-28 12:19 | Outpatient (CLI) | payer MEDICARE ==
--- NOTE | 2024-04-28 14:15 | DEXA Report ---
PROCEDURE: Dexa Spine and/or Hip INDICATIONS: HYPERPARATHYROIDISM TECHNIQUE: Dual energy x-ray absorptiometry (DXA) was performed on a [employer] System. Regions measur ed are the AP Spine, femoral neck, and if needed forearm. COMPARISON: None FINDINGS: Lumbar Spine: Bone Mineral Density: 1.068 g/cm/cm,T score: -0.9. Left Femoral Neck: Bone Mineral Density: 0.604 g/cm/cm, T score: -3.1. Left Hip: Bone Mineral Density: 0.6-7 g/cm/cm,T score: -3.0. (T score greater or equal to -1.0: NORMAL) (T score from -1.1 to -2.4: OSTEOPENIA) (T score less than or equal to -2.5 to: OSTEOPOROSIS) Impression: By WHO criteria, this patient has osteoporosis. Patients with diagnosis of osteoporosis or osteopenia should have regular bone mineral density assess ment. For those eligible for Medicare, routine testing is allowed once every 2 years. Testing frequ ency can be increased for patients who have rapidly progressing disease or for those who are receivin g medical therapy to restore bone mass. Reviewed by: Kvng Ramirez MD on 04/28/2024 2:14 PM PDT Approved by: Kvng Ramirez MD on 04/28/2024 2:14 PM PDT Station ID: [id number]
== END 2024-04-28 12:20 | disposition home or self-care (01) ==
LOC: DI 12:19
PROVIDERS: ATTEND Registered Nurse
DX: E21.3 Hyperparathyroidism, unspecified (principal); M81.0 Age-related osteoporosis without current pathological fracture

== ENCOUNTER 2024-07-29 07:48 | Outpatient (CLI) | payer MEDICARE ==
[2024-07-29 16:39] LABS: ALBUMIN 3.8 g/dL (3.2-5.5); ALBUMIN/GLOBULIN RATIO 1.7 (1.0-2.2); CALCIUM 9.8 mg/dL (8.5-10.3); CREATININE 0.5 mg/dL (0.6-1.3); MAGNESIUM 1.6 mg/dL (1.7-2.3); PHOSPHORUS 2.1 mg/dL (2.5-5.0); POTASSIUM 3.9 mmol/L (3.5-4.5); TOTAL PROTEIN 6.1 g/dL (6.4-8.9)
[2024-07-30 04:09] LABS: VITAMIN D 25-HYDROXY 26.9 ng/mL (30.0-100.0)
== END 2024-07-29 07:49 | disposition home or self-care (01) ==
LOC: LAB.S 07:48
PROVIDERS: ATTEND Student in an Organized Health Care Education/Training Program
DX: E21.3 Hyperparathyroidism, unspecified (principal); E83.52 Hypercalcemia
CPT/HCPCS: 36415; 80053; 82164; 82306; 82397; 82652; 82784; 83735; 83970; 84100; 84155; 84165; 84590; 86334